=== PATIENT | male | born 1965 | race Caucasian/White ===

== ENCOUNTER 2016-04-11 04:14 | Inpatient (IN) | payer OTHER ==
[~2016-04-11] VITALS: Ht 170.2 cm; Wt 108.2 kg
[2016-04-11] VITALS (9 sets, daily range): BP systolic 132–159; RESP 18–20; TEMP 97.3–98.5; Ht 170.2 cm; Wt 108.2 kg
[2016-04-11] MEDS ORDERED: DUONEB INH ONE ×2 (05:42)
[2016-04-11] MEDS ORDERED: METHYLPRED SOD SUCC 125 MG/2 ML VIAL ONE (06:10)
[2016-04-11] MEDS ORDERED: MAGNESIUM SULF 1 GM/100 ML 100 ML IV ONE (06:45)
[2016-04-11] MEDS: DUONEB INH SCH ×4 (07:00→23:16)
[2016-04-11] MEDS ORDERED: METHYLPRED SOD SUCC 40 MG VIAL IV SCH (08:00)
[2016-04-11] MEDS ORDERED: **NOTE TO NURSE XX ONE (08:30)
[2016-04-11] MEDS ORDERED: AZITHROMYCIN 500 MG in SODIUM CHLORIDE 0.9% 250 ML IV SCH (09:00)
[2016-04-11] MEDS ORDERED: CEFTRIAXONE 1 GM in SODIUM CHLORIDE 0.9% 50 ML IV SCH (09:00)
[2016-04-11] MEDS ORDERED: *PINK BRACELET XX ONE (09:20)
[2016-04-11] MEDS: LEVOFLOXACIN 500 MG/100 ML 100 ML IV SCH (09:42)
[2016-04-11] MEDS: NICOTINE 14 MG/24 HR TDSY TRANSDERM SCH (09:43)
[2016-04-11] MEDS: FAMOTIDINE 20 MG TAB PO SCH ×3 (09:44→21:40)
[2016-04-11] MEDS: METHYLPRED SOD SUCC 125 MG/2 ML VIAL IV SCH ×2 (09:46→15:59)
[2016-04-11] MEDS ORDERED: DUONEB INH SCH (11:00)
[2016-04-11] MEDS: [UNRECOGNIZED DRUG - OTHER] XX SCH (20:00)
[2016-04-11] MEDS: PANTOPRAZOLE 40 MG TAB PO SCH (22:35)
[2016-04-11] MEDS: BUPROPION SR 150 MG TAB PO SCH (22:36)
[2016-04-11] MEDS: AMITRIPTYLINE 25 MG TAB PO SCH (22:36)
[2016-04-11] MEDS: TRAMADOL 50 MG TAB PO PRN (22:37)
[2016-04-12] VITALS (9 sets, daily range): BP systolic 132–149; RESP 16–23; TEMP 97.4–98.5
[2016-04-12] MEDS: METHYLPRED SOD SUCC 125 MG/2 ML VIAL IV SCH ×4 (01:05→23:47)
[2016-04-12] MEDS: SODIUM CHLORIDE 0.9% FLUSH BAG 500 ML IV SCH (05:41)
[2016-04-12] MEDS: [UNRECOGNIZED DRUG - OTHER] XX SCH ×2 (07:38→20:00)
[2016-04-12] MEDS: FAMOTIDINE 20 MG TAB PO SCH ×4 (07:43→21:51)
[2016-04-12] MEDS: NICOTINE 14 MG/24 HR TDSY TRANSDERM SCH (07:48)
[2016-04-12] MEDS: LEVOFLOXACIN 500 MG/100 ML 100 ML IV SCH (07:48)
[2016-04-12] MEDS: TRAMADOL 50 MG TAB PO PRN ×3 (07:49→23:48)
[2016-04-12] MEDS: BISOPROLOL 5 MG TAB PO SCH (07:49)
[2016-04-12] MEDS: MELOXICAM 7.5 MG TAB PO SCH (07:49)
[2016-04-12] MEDS: TRIAMTER/HCTZ 37.5/25MG TAB PO SCH (07:49)
[2016-04-12] MEDS: ASPIRIN 81 MG CHEW TAB PO SCH (07:50)
[2016-04-12] MEDS: Furosemide 20 MG TAB PO SCH (07:50)
[2016-04-12] MEDS: BUPROPION SR 150 MG TAB PO SCH ×2 (07:50→21:51)
[2016-04-12] MEDS: THEOPHYLLINE SR 200 MG CAP PO SCH ×2 (07:50→17:32)
[2016-04-12] MEDS: DUONEB INH SCH ×5 (07:52→22:48)
[2016-04-12] MEDS: PANTOPRAZOLE 40 MG TAB PO SCH (21:51)
[2016-04-12] MEDS: AMITRIPTYLINE 25 MG TAB PO SCH (21:52)
[2016-04-13] VITALS (8 sets, daily range): BP systolic 129–160; RESP 18–25; TEMP 97.5–98.2
[2016-04-13] MEDS: SODIUM CHLORIDE 0.9% FLUSH BAG 500 ML IV SCH (05:40)
[2016-04-13] MEDS: [UNRECOGNIZED DRUG - OTHER] XX SCH ×2 (07:26→20:00)
[2016-04-13] MEDS: FAMOTIDINE 20 MG TAB PO SCH ×3 (07:26→21:31)
[2016-04-13] MEDS: DUONEB INH SCH ×5 (07:37→22:48)
[2016-04-13] MEDS: LEVOFLOXACIN 500 MG/100 ML 100 ML IV SCH (08:52)
[2016-04-13] MEDS: METHYLPRED SOD SUCC 125 MG/2 ML VIAL IV SCH ×2 (08:52→16:44)
[2016-04-13] MEDS: NICOTINE 14 MG/24 HR TDSY TRANSDERM SCH (08:52)
[2016-04-13] MEDS: THEOPHYLLINE SR 200 MG CAP PO SCH ×2 (08:53→16:44)
[2016-04-13] MEDS: MELOXICAM 7.5 MG TAB PO SCH (08:53)
[2016-04-13] MEDS: BUPROPION SR 150 MG TAB PO SCH ×2 (08:53→21:31)
[2016-04-13] MEDS: TRAMADOL 50 MG TAB PO PRN ×2 (08:53→16:45)
[2016-04-13] MEDS: TRIAMTER/HCTZ 37.5/25MG TAB PO SCH (08:53)
[2016-04-13] MEDS: ASPIRIN 81 MG CHEW TAB PO SCH (08:54)
[2016-04-13] MEDS: Furosemide 20 MG TAB PO SCH (08:54)
[2016-04-13] MEDS: BISOPROLOL 5 MG TAB PO SCH (08:54)
[2016-04-13] MEDS: PANTOPRAZOLE 40 MG TAB PO SCH (21:31)
[2016-04-13] MEDS: AMITRIPTYLINE 25 MG TAB PO SCH (21:31)
[2016-04-14] VITALS (9 sets, daily range): BP systolic 123–148; RESP 18–30; TEMP 97.4–98.2
[2016-04-14] MEDS: METHYLPRED SOD SUCC 125 MG/2 ML VIAL IV SCH (00:48)
[2016-04-14] MEDS: TRAMADOL 50 MG TAB PO PRN ×4 (00:50→19:34)
[2016-04-14] MEDS: SODIUM CHLORIDE 0.9% FLUSH BAG 500 ML IV SCH (05:31)
[2016-04-14] MEDS: DUONEB INH SCH ×5 (06:47→21:58)
[2016-04-14] MEDS: [UNRECOGNIZED DRUG - OTHER] XX SCH ×2 (08:00→19:48)
[2016-04-14] MEDS: METHYLPRED SOD SUCC 40 MG VIAL IV SCH ×3 (09:30→23:28)
[2016-04-14] MEDS: LEVOFLOXACIN 500 MG/100 ML 100 ML IV SCH (09:33)
[2016-04-14] MEDS: MELOXICAM 7.5 MG TAB PO SCH (09:40)
[2016-04-14] MEDS: Furosemide 20 MG TAB PO SCH (09:40)
[2016-04-14] MEDS: TRIAMTER/HCTZ 37.5/25MG TAB PO SCH (09:40)
[2016-04-14] MEDS: FAMOTIDINE 20 MG TAB PO SCH ×2 (09:40→19:49)
[2016-04-14] MEDS: ASPIRIN 81 MG CHEW TAB PO SCH (09:40)
[2016-04-14] MEDS: BUPROPION SR 150 MG TAB PO SCH ×2 (09:41→19:48)
[2016-04-14] MEDS: BISOPROLOL 5 MG TAB PO SCH (09:41)
[2016-04-14] MEDS: NICOTINE 14 MG/24 HR TDSY TRANSDERM SCH (09:41)
[2016-04-14] MEDS: THEOPHYLLINE SR 200 MG CAP PO SCH ×2 (09:41→18:39)
[2016-04-14] MEDS: PANTOPRAZOLE 40 MG TAB PO SCH (19:48)
[2016-04-14] MEDS: AMITRIPTYLINE 25 MG TAB PO SCH (19:49)
[2016-04-15] VITALS (7 sets, daily range): BP systolic 124–151; RESP 20–30; TEMP 97.4–99.7
[2016-04-15] MEDS: TRAMADOL 50 MG TAB PO PRN ×3 (04:01→20:16)
[2016-04-15] MEDS: SODIUM CHLORIDE 0.9% FLUSH BAG 500 ML IV SCH (04:50)
[2016-04-15] MEDS: DUONEB INH SCH ×5 (07:05→22:26)
[2016-04-15] MEDS: [UNRECOGNIZED DRUG - OTHER] XX SCH ×2 (08:00→20:00)
[2016-04-15] MEDS: METHYLPRED SOD SUCC 40 MG VIAL IV SCH ×3 (09:08→23:41)
[2016-04-15] MEDS: Furosemide 20 MG TAB PO SCH (09:09)
[2016-04-15] MEDS: ASPIRIN 81 MG CHEW TAB PO SCH (09:09)
[2016-04-15] MEDS: LEVOFLOXACIN 500 MG/100 ML 100 ML IV SCH (09:09)
[2016-04-15] MEDS: TRIAMTER/HCTZ 37.5/25MG TAB PO SCH (09:09)
[2016-04-15] MEDS: BUPROPION SR 150 MG TAB PO SCH ×2 (09:10→20:16)
[2016-04-15] MEDS: BISOPROLOL 5 MG TAB PO SCH (09:10)
[2016-04-15] MEDS: FAMOTIDINE 20 MG TAB PO SCH ×2 (09:10→20:16)
[2016-04-15] MEDS: NICOTINE 14 MG/24 HR TDSY TRANSDERM SCH (09:10)
[2016-04-15] MEDS: THEOPHYLLINE SR 200 MG CAP PO SCH ×2 (09:10→18:00)
[2016-04-15] MEDS: MELOXICAM 7.5 MG TAB PO SCH (09:10)
[2016-04-15] MEDS: PANTOPRAZOLE 40 MG TAB PO SCH (20:16)
[2016-04-15] MEDS: AMITRIPTYLINE 25 MG TAB PO SCH (20:16)
[2016-04-16] VITALS (7 sets, daily range): BP systolic 128–148; RESP 18–22; TEMP 97.9–98.4
[2016-04-16] MEDS: TRAMADOL 50 MG TAB PO PRN ×3 (04:16→22:19)
[2016-04-16] MEDS: SODIUM CHLORIDE 0.9% FLUSH BAG 500 ML IV SCH (05:32)
[2016-04-16] MEDS: DUONEB INH SCH ×5 (06:06→23:16)
[2016-04-16] MEDS: [UNRECOGNIZED DRUG - OTHER] XX SCH ×2 (08:00→19:32)
[2016-04-16] MEDS: METHYLPRED SOD SUCC 40 MG VIAL IV SCH ×3 (08:22→23:56)
[2016-04-16] MEDS: BISOPROLOL 5 MG TAB PO SCH (08:23)
[2016-04-16] MEDS: LEVOFLOXACIN 500 MG TAB PO SCH (08:23)
[2016-04-16] MEDS: NICOTINE 14 MG/24 HR TDSY TRANSDERM SCH (08:23)
[2016-04-16] MEDS: THEOPHYLLINE SR 200 MG CAP PO SCH ×2 (08:24→18:14)
[2016-04-16] MEDS: ASPIRIN 81 MG CHEW TAB PO SCH (08:24)
[2016-04-16] MEDS: FAMOTIDINE 20 MG TAB PO SCH ×2 (08:24→19:32)
[2016-04-16] MEDS: Furosemide 20 MG TAB PO SCH (08:24)
[2016-04-16] MEDS: BUPROPION SR 150 MG TAB PO SCH ×2 (08:24→19:32)
[2016-04-16] MEDS: MELOXICAM 7.5 MG TAB PO SCH (08:24)
[2016-04-16] MEDS: TRIAMTER/HCTZ 37.5/25MG TAB PO SCH (08:25)
[2016-04-16] MEDS: PANTOPRAZOLE 40 MG TAB PO SCH (19:32)
[2016-04-16] MEDS: AMITRIPTYLINE 25 MG TAB PO SCH (19:32)
[2016-04-17] VITALS (8 sets, daily range): BP systolic 130–151; RESP 18–26; TEMP 97.6–98.4
[2016-04-17] MEDS: SODIUM CHLORIDE 0.9% FLUSH BAG 500 ML IV SCH (06:00)
[2016-04-17] MEDS: TRAMADOL 50 MG TAB PO PRN ×2 (06:10→18:39)
[2016-04-17] MEDS: METHYLPRED SOD SUCC 40 MG VIAL IV SCH ×3 (07:52→23:57)
[2016-04-17] MEDS: [UNRECOGNIZED DRUG - OTHER] XX SCH ×2 (07:53→20:00)
[2016-04-17] MEDS: DUONEB INH SCH ×5 (07:56→23:07)
[2016-04-17] MEDS: BUPROPION SR 150 MG TAB PO SCH ×2 (10:32→21:31)
[2016-04-17] MEDS: TRIAMTER/HCTZ 37.5/25MG TAB PO SCH (10:32)
[2016-04-17] MEDS: FAMOTIDINE 20 MG TAB PO SCH ×2 (10:32→21:30)
[2016-04-17] MEDS: ASPIRIN 81 MG CHEW TAB PO SCH (10:32)
[2016-04-17] MEDS: Furosemide 20 MG TAB PO SCH (10:32)
[2016-04-17] MEDS: LEVOFLOXACIN 500 MG TAB PO SCH (10:33)
[2016-04-17] MEDS: MELOXICAM 7.5 MG TAB PO SCH (10:33)
[2016-04-17] MEDS: BISOPROLOL 5 MG TAB PO SCH (10:33)
[2016-04-17] MEDS: NICOTINE 14 MG/24 HR TDSY TRANSDERM SCH (10:33)
[2016-04-17] MEDS: THEOPHYLLINE SR 200 MG CAP PO SCH ×2 (10:41→18:32)
[2016-04-17] MEDS: PANTOPRAZOLE 40 MG TAB PO SCH (21:30)
[2016-04-17] MEDS: AMITRIPTYLINE 25 MG TAB PO SCH (21:31)
[2016-04-18] VITALS (7 sets, daily range): BP systolic 128–137; RESP 18–26; TEMP 97.7–98.7
[2016-04-18] MEDS: TRAMADOL 50 MG TAB PO PRN ×2 (03:00→11:02)
[2016-04-18] MEDS: SODIUM CHLORIDE 0.9% FLUSH BAG 500 ML IV SCH (06:08)
[2016-04-18] MEDS: DUONEB INH SCH ×3 (06:16→14:28)
[2016-04-18] MEDS: [UNRECOGNIZED DRUG - OTHER] XX SCH ×2 (08:00→15:59)
[2016-04-18] MEDS: THEOPHYLLINE SR 200 MG CAP PO SCH (09:09)
[2016-04-18] MEDS: Furosemide 20 MG TAB PO SCH (09:09)
[2016-04-18] MEDS: BISOPROLOL 5 MG TAB PO SCH (09:09)
[2016-04-18] MEDS: TRIAMTER/HCTZ 37.5/25MG TAB PO SCH (09:09)
[2016-04-18] MEDS: METHYLPRED SOD SUCC 40 MG VIAL IV SCH ×2 (09:09→15:44)
[2016-04-18] MEDS: NICOTINE 14 MG/24 HR TDSY TRANSDERM SCH (09:09)
[2016-04-18] MEDS: ASPIRIN 81 MG CHEW TAB PO SCH (09:09)
[2016-04-18] MEDS: FAMOTIDINE 20 MG TAB PO SCH (09:09)
[2016-04-18] MEDS: BUPROPION SR 150 MG TAB PO SCH (09:09)
[2016-04-18] MEDS: MELOXICAM 7.5 MG TAB PO SCH (09:10)
[2016-04-18] MEDS ORDERED: THEOPHYLLINE SR 100 MG CAP PO SCH (18:00)
== END 2016-04-18 16:23 | disposition home or self-care (01) | DRG 189 ==
LOC: ENRESERVDT → ENRESERVTM → ER 04:14 → EMR 06:32 → ENPENDDIS 06:32 → 4NT 07:37 → PCU 04-15 18:54 → PCU2 04-17 17:37
PROVIDERS: ADMIT Internal Medicine; ATTEND Internal Medicine
DX: J96.22 Acute and chronic respiratory failure with hypercapnia (principal); J18.9 Pneumonia, unspecified organism; I11.0 Hypertensive heart disease with heart failure; J44.0 Chronic obstructive pulmonary disease with (acute) lower respiratory infection; I50.9 Heart failure, unspecified; J44.1 Chronic obstructive pulmonary disease with (acute) exacerbation; G47.33 Obstructive sleep apnea (adult) (pediatric); I25.10 Atherosclerotic heart disease of native coronary artery without angina pectoris; M19.90 Unspecified osteoarthritis, unspecified site; G43.909 Migraine, unspecified, not intractable, without status migrainosus; K21.9 Gastro-esophageal reflux disease without esophagitis; Z79.82 Long term (current) use of aspirin; F17.200 Nicotine dependence, unspecified, uncomplicated; Z80.1 Family history of malignant neoplasm of trachea, bronchus and lung; Z80.0 Family history of malignant neoplasm of digestive organs; Z80.3 Family history of malignant neoplasm of breast
CPT/HCPCS: 36415; 36600; 71010; 80053; 82553; 82803; 83880; 84484; 85025; 86738; 87071; 87205; 87278; 87299; 93005; 94640; 94660; 94762; 94799; 96374